=== PATIENT | male | born 1980 | race Caucasian/White ===

== ENCOUNTER 2016-11-06 19:34 | Inpatient (IN) | payer OTHER ==
[2016-11-06] MEDS ORDERED: NS 0.9% 1000 ML* 1,000 ML IV ONE (21:16)
[2016-11-06 21:25] LABS: Hematocrit 48 % (42-52); Hemoglobin 16.8 g/dl (14.0-18.0); Mean Corpuscular HGB Conc 35 g/dl (31-36); Mean Corpuscular Hemoglobin 29 pg (27-31); Mean Corpuscular Volume 83 fL (80-94); Mean Platelet Volume 10 um3 (7.4-10.4); Red Blood Count 5.76 10^6/ul (4.0-5.4); Red Cell Distribution Width 12 % (10.5-15); White Blood Count 12.7 10^3/ul (3.5-10.8)
[2016-11-06 21:37] LABS: Albumin 4.5 g/dL (3.2-5.2); C Reactive Protein 8.67 mg/L (< 5.00); Calcium 9.3 mg/dL (8.6-10.3); EGFR African American 109.4 (>60); Globulin 3.2 g/dL (2-4); Magnesium 1.9 mg/dL (1.9-2.7); Potassium 3.8 mmol/L (3.5-5.0); Total Bilirubin 1.1 mg/dL (0.2-1.0); Total Protein 7.7 g/dL (6.4-8.9)
--- NOTE | 2016-11-06 21:45 | ED ---
I, Oh,Soohjeanetteun, scribed for Celestine Lindsey MD on 11/06/16 at 2119 . Abdominal Pain/Male - HPI Summary HPI Summary: This 36 y/o male presents to ED for "bowel" abd pain since today AM. Positive n/ v x1 "a gallon of bilous vomit" around 1700 PM this afternoon. Nausea is currently resolved right now. Pt had x3 bowel movement today. Pt states that PMHx includes bowel obstructions s/p surgeries with last episode in August 2015. He was referred to ED by Dr. Mojica, his primary care provider, to have imaging studies done and r/o another obstruction. - History of Current Complaint Chief Complaint: EDAbdPain Stated Complaint: VOMITING/ABD PAIN Time Seen by Provider: 11/06/16 21:12 Hx Obtained From: Patient, Medical Records Onset/Duration: Lasting Hours, Still Present Timing: Constant Pain Intensity: 2 Pain Scale Used: 0-10 Numeric Location: Discrete At: RLQ, Discrete At: LLQ Radiates: No Aggravating Factor(s): Nothing Alleviating Factor(s): Nothing Associated Signs And Symptoms: Positive: Nausea, Vomiting. Negative: Fever - Allergies/Home Medications Allergies/Adverse Reactions: Allergies Allergy/AdvReac Type Severity Reaction Status Date / Time Aspartame Allergy Unknown Unknown Verified 11/06/16 21:35 Reaction Details Home Medications: Home Medications metFORMIN* [Glucophage 1000 MG TAB *] 750 mg PO BID 11/06/16 [History Confirmed 11/06/16] PMH/Surg Hx/FS Hx/Imm Hx Endocrine/Hematology History: Reports: Hx Diabetes Denies: Hx Thyroid Disease Cardiovascular History: Denies: Hx Congestive Heart Failure, Hx Hypertension Respiratory History: Denies: Hx Asthma, Hx Chronic Obstructive Pulmonary Disease (COPD) GI History: Reports: Hx Gall Bladder Disease - Gallbladder removed 02/2014, Other GI Disorders - SBO Denies: Hx Gastroesophageal Reflux Disease, Hx Ulcer History: Denies: Hx Renal Disease Sensory History: Reports: Hx Deafness - partial deafness no hearing aides Neurological History: Reports: Hx Nerve Disease - NUMBNESS AT R ARM 5 YEARS AGO - Surgical History Surgery Procedure, Year, and Place: 2013 - bowel adhesion, HAS HERNIA. CHOLECYSTECTOMY - 2013 Infectious Disease History: No Infectious Disease History: Denies: Hx Hepatitis, Hx Human Immunodeficiency Virus (HIV), History Other Infectious Disease, Traveled Outside the [place] in Last 30 Days - Family History Known Family History: Positive: Other - Positive for stomach CA - Social History Alcohol Use: Rare Alcohol Amount: 2/month Hx Substance Use: No Substance Use Type: Reports: None Hx Tobacco Use: Yes Smoking Status (MU): Former Smoker Type: Cigarettes Length of Time of Smoking/Using Tobacco: 10 Review of Systems Negative: Fever Positive: Abdominal Pain, Vomiting, Nausea All Other Systems Reviewed And Are Negative: Yes Physical Exam Triage Information Reviewed: Yes Vital Signs On Initial Exam: Initial Vitals Temp Pulse Resp BP Pulse Ox 97.3 F 88 15 131/82 96 11/06/16 19:38 11/06/16 19:38 11/06/16 19:38 11/06/16 19:38 11/06/16 19:38 Vital Signs Reviewed: Yes Appearance: Positive: Well-Appearing, Pain Distress - mild Skin: Positive: Warm Head/Face: Positive: Normal Head/Face Inspection Eyes: Positive: RICH ENT: Positive: Hearing grossly normal Neck: Positive: Supple Respiratory/Lung Sounds: Positive: Breath Sounds Present Cardiovascular: Positive: RRR Abdomen Description: Positive: Soft, Other: - mild diffuse tenderness Musculoskeletal: Positive: Strength/ROM Intact Neurological: Positive: Alert, Oriented to Person Place, Time Psychiatric: Positive: Affect/Mood Appropriate Diagnostics - Vital Signs Vital Signs Temp Pulse Resp BP Pulse Ox 11/06/16 19:38 97.3 F 88 15 131/82 96 - Laboratory Result Diagrams: 11/06/16 21:14 11/06/16 21:14 Lab Statement: Any lab studies that have been ordered have been reviewed, and results considered in the medical decision making process. - CT Ab/P CT Interpretation: No Acute Changes - Multiple distended loops of small bowel measuring up to 5 cm in maximum diameter with scattered air-fluid levels. These taper to normal caliber distally with a relatively decompressed terminal ileum although a discrete transition point is not identified. Findings may represent ileus although early or partial obstruction cannot be ruled out. Delayed imagings would be helpful to confirm or exclude small bowel obstruction. There is a supraumbilical ventral hernia containing fat and a protruding loop of small bowel without evidence of obstruction at this point. There are multiple loops of small bowel in the mid to lower abd and pelvis demonstrating moderate circumferential thickening compatible with nonspecific enteritis. The appendix and gallbladder are surgically absent. Fatty changes of the liver. The upper abd visceral organs are otherwise unremarkable. No free air, free fluid or loculated collection. CT Interpretation Completed By: Radiologist Repeat Ab/P CT Interpretation: Positive (See Comments) - Level of obstruction appears to be associated with a right paraumbilical ventral hernia CT Interpretation Completed By: Radiologist Re-Evaluation - Re-Evaluation First Eval Re-Evaluation Time: 02:55 Comment: Repeat CT readings were reviewed and shared with pt. Second Eval Re-Evaluation Time: 03:05 Comment: Addressed pt's questions and concerns. Abdominal Pain Fem Course/Dx - Course Course Of Treatment: Consultation: Dr. Man (Surgery) at [address] Man ( Surgery) at [address] Davila (Hospitalist) at 0345 AM Assessment/Plan: This 36 y/o male presents to ED for "bowel" abd pain and n/v since today AM. PMHx is significant for previous bowel obstruction, and pt decided to visit ED today to r/o possible another obstruction. First CT imaging couldn't r/o partial or early obstruction, and delayed imaging was recommended by on-call radiologist. Repeat CT AB/P taken at 0116 indicates obstruction associated with right umbilical ventral hernia. CT imaging studies were shared with Dr. Man (Surgery brickmason apprentice) and Dr. Davila (Hospitalist brickmason apprentice), who is agreeable to admission. - Diagnoses Provider Diagnoses: SBO (small bowel obstruction) - Provider Notifications Discussed Care Of Patient With: Kraig Man Time Discussed With Above Provider: 03:00 Instructed by Provider To: Admit As Inpatient Discharge - Discharge Plan Condition: Fair Disposition: ADMITTED TO [facility] documentation as recorded by the Rodri mistry Soohyun accurately reflects the service I personally performed and the decisions made by me, Celestine Lindsey MD.
[2016-11-06] MEDS ORDERED: Iodixanol* (CONTRAST) 320 MG/ML 100 ML SDV IV ONE (22:13)
[2016-11-07] MEDS ORDERED: Ondansetron INJ* 2 MG/ML VIAL ONE (02:19)
[2016-11-07] MEDS ORDERED: Ondansetron INJ* 2 MG/ML VIAL IV ONE ×2 (02:22→04:15)
[2016-11-07] MEDS ORDERED: Ondansetron INJ* 2 MG/ML VIAL IV PRN ×2 (04:15→04:48)
[2016-11-07] MEDS ORDERED: Morphine INJ* 4 MG/ML 1 ML SYRINGE IV ONE (04:15)
[2016-11-07] MEDS ORDERED: Dextrose 50% Syringe 50 ML* 25 GM/50 ML SYRINGE IV PUSH PRN (04:50)
[2016-11-07] MEDS ORDERED: HYDROmorphone* 1 MG/ML 1 ML SYR IV SLOW PU PRN (04:50)
[2016-11-07] MEDS ORDERED: NS 0.9% 1000 ML* 1,000 ML IV SCH (05:00)
[2016-11-07] MEDS: Heparin VIAL(*) 5000 UNITS/ML VIAL (FIVE THOUSAND) SUBCUT SCH ×3 (06:03→22:09)
[2016-11-07] MEDS: Insulin LISPRO* 1 UNITS UNIT SUBCUT SCH ×4 (06:09→23:56)
--- NOTE | 2016-11-07 07:36 | RAD ---
CLINICAL HISTORY: Abdominal pain, history of small bowel obstruction. COMPARISON: September 06, 2015 TECHNIQUE: Multiple contiguous axial CT scans were obtained of the abdomen and pelvis after the administration of intravenous contrast. Coronal and sagittal multiplanar reformations are submitted for review. Oral contrast was administered. Delayed images were obtained through the abdomen and pelvis. Additionally, delayed images of the abdomen and pelvis were obtained at 1:54 AM. FINDINGS: LUNG BASES: The lung bases are clear. There is minimal bilateral gynecomastia. LIVER: The liver is diffusely low in attenuation compared to the spleen. There are no focal hepatic parenchymal masses. The liver measures up to 20 cm in long axis. BILE DUCTS: There is no intrahepatic or extrahepatic biliary dilatation. GALLBLADDER: The gallbladder is not visualized. Surgical clips are noted in the gallbladder fossa. PANCREAS: The pancreas is normal, without mass or ductal dilatation. SPLEEN: Normal in size and appearance. UPPER GI TRACT: Evaluation of the gastrointestinal tract is limited by incomplete gastric distention. The upper GI tract is unremarkable. SMALL BOWEL AND MESENTERY: There is diffuse distention and mild dilatation of the small bowel, with a transition point to decompressed small bowel in the left midabdomen at the level of the proximal ileum. COLON: The colon is normal in contour, course, caliber. There is no pericolonic inflammatory change. ADRENALS: Normal bilaterally. KIDNEYS: The kidneys are normal in shape, size, contour, and axis. There is no hydronephrosis or nephrolithiasis. BLADDER: There is thickening of the anterior superior margin of the bladder with the questionable urachal remnant. PELVIC ORGANS: The prostate gland is normal. The seminal vesicles are symmetric. AORTA: The aorta is normal. IVC: Unremarkable LYMPH NODES: There is no lymphadenopathy by size criteria. ABDOMINAL WALL: There is diastasis are clear with a broad-based ventral hernia containing a sidewall of small bowel. This is not a transition point. BONES AND SOFT TISSUES: Degenerative changes are noted most pronounced at L5-S1 OTHER: On delayed images, there is been no significant change in the caliber of the small bowel and the point of transition. IMPRESSION: 1. DILATED LOOPS OF SMALL BOWEL WITH A TRANSITION POINT IN THE MID ABDOMEN AT THE LEVEL OF THE ILEUM CONSISTENT WITH SMALL BOWEL OBSTRUCTION. 2. THERE IS A VENTRAL HERNIA CONTAINING SIDEWALL OF SMALL BOWEL. 3. HEPATOMEGALY WITH FATTY INFILTRATION OF THE LIVER. 4. FOCAL BLADDER WALL THICKENING ANTERIORLY AT THE LEVEL OF THE URACHAL REMNANT. CONSIDER CORRELATION WITH DIRECT VISUALIZATION THE NONACUTE SETTING
--- NOTE | 2016-11-07 09:51 | HP ---
CC: Dr. Kiah Mojica* HISTORY AND PHYSICAL: DATE OF ADMISSION: 11/07/16 PRIMARY CARE PHYSICIAN: Dr. Kiah Mojica CHIEF COMPLAINT: Abdominal pain. HISTORY OF PRESENT ILLNESS: The patient is a 36-year-old gentleman who said he had this abdominal pain before. It is started the night before he came in. He is very in tune with his abdominal pain because he has had similar situation already several times. Because he suspected he had another bowel obstruction, he went right into clear liquids. He went to work though the following day despite increasing pain and he actually vomited up a gallon of yellow fluid. He knew it was bile. He then came to the ER for further evaluation. He notes his last bowel movement that was full was at 9:30 a.m. the day before. He has had 3 subsequent bowel movements that were small and liquidy. He vomited also a couple of times here again very bilious material. In the ED, the patient did have a CT scan, which did show likely bowel obstruction. PAST MEDICAL HISTORY: Significant for lysis of adhesions in 2013, despite not having any previous bowel surgeries, cholecystectomy in February 2014, lysis of adhesions again in 2015 with an appendectomy. He also has type 2 diabetes. CURRENT MEDICATIONS: Metformin 750 mg twice daily. ALLERGIES: He has an allergy/adverse reaction to ASPARTAME. FAMILY HISTORY: Mother is alive at 64, type 2 diabetes and iron deficiency anemia. Father is alive at 63 has AAA and hypertension. SOCIAL HISTORY: Quit tobacco in 2005, rare alcohol, no recreational drug use. 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 His , Carole Hensley, is his healthcare proxy. He has 4 children. REVIEW OF SYSTEMS: A 14-point review of systems is completed with the patient. All pertinent positives and negatives are in the history of present illness, otherwise it is negative. PHYSICAL EXAMINATION GENERAL: A pleasant gentleman lying in bed, in no acute distress. VITAL SIGNS: Temperature 97.3 degrees, heart rate 80 beats per minute, respiratory rate 15 breaths per minute, pulse ox 96%, blood pressure 131/82. HEENT: Normocephalic and atraumatic. Pupils are equal, round and reactive to light. Moist mucous membranes. NECK: Supple. No JVD, bruits, palpable thyroid or lymphadenopathy. CHEST: Clear to auscultation and percussion bilaterally. CARDIOVASCULAR: S1, S2 appreciated. ABDOMEN: Positive bowel sounds in all 4 quadrants. It is soft, it is tender, but no rebound, guarding or rigidity. EXTREMITIES: No cyanosis, clubbing, or edema. +2 peripheral pulses bilaterally. NEUROLOGIC: Alert and oriented x3. Moves all extremities. SKIN: No rashes or abnormalities. LABORATORY DATA: White count 12.7, hemoglobin 16.8, hematocrit 48, platelets are 272. Sodium is 134, potassium 3.8, chloride 99, CO2 27, BUN 16, creatinine 1, glucose 134. Abdominal and pelvic CT does show an obstruction associated with a midline hernia. ASSESSMENT AND PLAN: 1. Bowel obstruction. Make patient n.p.o. Normal saline 100 cc an hour. Zofran p.r.n. for nausea, Tylenol p.r.n. for pain. Surgery to see in the a.m. Patient could not have NG tube because they cannot be passed. He has had G tube in the past to decompress the stomach. We will defer this to surgery. 2. Diabetes mellitus. We will hold metformin, fingersticks with sliding scale insulin. 3. FEN. N.p.o. Fluids as noted. 4. DVT prophylaxis. Heparin subcu. 5. The patient is a full code. TIME SPENT: Over 75 minutes was spent on this H and P; more than 40 minutes of which is spent direct [id number] contact with patient evaluation, physical exam, counseling, and coordination of care. [id number]/[facility] #: [id number] MTDD
--- NOTE | 2016-11-07 09:59 | HP ---
CC: Dr. Kiah Mojica; [facility]; [facility] at [facility] * HISTORY AND PHYSICAL: DATE OF ADMISSION: 11/07/16. HISTORY OF PRESENT ILLNESS: I was contacted by the emergency room in the overnight regarding Mr. Hensley a 36-year-old gentleman known to me with history of small bowel obstructions, who presented to the emergency room with a three-day history of nausea, vomiting and abdominal pain. The patient's workup in the emergency room included a CT scan and labs. The patient showed evidence of small bowel obstruction with dilated small bowel in transition zone. He was admitted to the short stay surgical unit, started on IV fluids, maintained on n.p.o. status. No NG tube was placed; the patient has had difficulty with NG tube placement in the past. The patient describes onset of symptoms two days ago. He felt vague abdominal pain consistent with previous small bowel obstructions. This was accompanied with nausea, minimal flatus. The patient stayed away from solid foods and only drank liquids. He did have a bowel movement that was within normal limits; but the following day, on 11/06/16, the patient had significant vomiting of approximately what he describes as a gallon of bilious emesis. At that point, the patient did have decreased flatus and had two additional loose bowel movements. Abdominal complaints was still described as a vague mid abdominal pain that was not severe. He then presented to the emergency room for concerns of a repeat small bowel obstruction. The patient was known to me from a year ago where he underwent diagnostic laparoscopy conversion to laparotomy, extensive lysis of adhesions, and placement of a gastrostomy tube because of inability to pass an NG tube secondary to repeated broken noses. The patient tolerated that procedure well, was discharged on postop day 6. He did follow up with physical therapist for improvement of potential scar tissue and he also followed with a specialist director of digital platforms in the [facility] for the purpose of getting worked up. There was a plan for endoscopy and colonoscopy; however, this had not happened. PAST MEDICAL HISTORY: Type 2 diabetes and small bowel obstructions. PAST SURGICAL HISTORY: Exploratory laparotomy in 2013, laparoscopic cholecystectomy in 2013, exploratory laparotomy in 2016 with appendectomy and gastrostomy. The gastrostomy has since been removed. HOME MEDICATIONS: Include metformin. ALLERGIES: He is allergic to ASPARTAME. SOCIAL HISTORY: He does not smoke. 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 FAMILY HISTORY: Significant for father who has had similar obstructive patterns throughout his life, but he has never undergone surgery. His maternal grandfather had ulcerative colitis. REVIEW OF SYSTEMS: No shortness of breath. No chest pain. No cardiovascular disease. Good exercise tolerance. Abdominal complaints as described. No dysuria. No hematuria. Bowel movements as described with loose bowel movements yesterday. Minimal flatus now. He did have an episode of flatus while I examined him today. He denies any bleeding or clotting disorders. He has never had a colonoscopy. Endocrine disorder as described above. He denies any fevers or chills. No headaches or visual disturbances. PHYSICAL EXAMINATION GENERAL: He is alert and oriented x3, in no apparent distress. VITAL SIGNS: Today, he is afebrile, blood pressure 120/69, pulse 80, respirations 17, with O2 sat of 96%. HEENT: Head is normocephalic, atraumatic. Sclerae anicteric. Mucous membranes are moist. NECK: No lymphadenopathy. LUNGS: Clear to auscultation bilaterally. ABDOMEN: Soft, nondistended, nontender. Healed midline incision with incisional hernia at the superior aspect; this is reducible. Hypoactive bowel sounds. No groin hernias. RECTAL EXAM: Not performed. No CVA tenderness. EXTREMITIES: Within normal limits. DIAGNOSTIC STUDIES/LAB DATA: Show a white count of 12.7 with a CRP of 8.5. CT scan images as well as report were reviewed. It showed dilated loops of small bowel with a transition point in the mid abdomen at the level of the ileum. Ventral hernia that did not represent the location of the transition point. Small bowel showed mild dilatation. No lymphadenopathy. No free fluid and no free air. IMPRESSION AND PLAN: Recurrent small bowel obstruction in a patient with complicated history of small bowel obstructions and extensive lysis of adhesions. Clinically stable at this time. Plan will be for watchful waiting. N.p.o. Status - we will not place an NG tube because we were not able to in the past and we will not try. That being said, we could consider interventional radiologic placement of a gastrostomy through the previous site. I would like to start the patient on antibiotics, feeling that there is a component of enteritis and this may help. I discussed this plan with the patient, and we will potentially go to the operating room on this admission for an exploratory laparotomy, lysis of adhesions, and he is aware of this. We would place a gastrostomy tube at the time. Again, we will manage his glucose with insulin. He will remain on IV fluids. We will repeat the x-ray and labs in the morning. [id number]/[facility] #: [id number] QI
--- NOTE | 2016-11-07 10:06 | RAD ---
HISTORY: Rule out obstruction COMPARISONS: CT dated November 07.17 VIEWS: Frontal views of the abdomen. FINDINGS: BOWEL: Again noted in loops of small bowel CALCULI: There are no abnormal calculi. BONES AND SOFT TISSUES: There are no osseous abnormalities. OTHER FINDINGS: The lung bases are clear. There is no subphrenic gas. IMPRESSION: PERSISTENT DILATED LOOPS OF SMALL BOWEL CONSISTENT WITH SMALL BOWEL OBSTRUCTION.
[2016-11-07] MEDS: Ciprofloxacin 400MG IVPREMIX(* 400 MG/200 ML BAG IVPB SCH ×2 (10:16→22:10)
[2016-11-07] MEDS ORDERED: NS 0.9% 1000 ML* 1,000 ML IV ONE ×2 (10:42→17:26)
[2016-11-07] MEDS: metroNIDAZOLE IV 500 MG/100ML* 500 MG/100 ML BAG IVPB SCH ×2 (11:44→23:23)
--- NOTE | 2016-11-07 12:27 | PN ---
Progress Note - Progress Note Date of Service: 11/07/16 Note: I was asked to see the patient by nursing staff to explain findings of abdominal xrays from this AM. Patient reports feeling better, less distended, passing lots of flatus. Abdominal films revealed persistent SBO On exam: Abdomen soft, NT, ND. Bowel sounds active in all quadrant. Moderate size VIH noted at upper midline incision, no evidence of incarcerated bowel, non-tender on exam. Patient was reassured, he is comfortable at this point. He would rather not start on any sips of clear liquids, since he's afraid of vomiting again. Await bowel functions.
[2016-11-07] MEDS: NS 0.9% 1000 ML* 1,000 ML IV SCH ×2 (13:14→18:55)
[2016-11-08] MEDS: NS 0.9% 1000 ML* 1,000 ML IV SCH (03:38)
[2016-11-08 04:53] LABS: Urine Bacteria Absent (Absent); Urine Bilirubin Negative (Negative); Urine Glucose Negative (Negative); Urine Nitrite Negative (Negative)
[2016-11-08] MEDS: Heparin VIAL(*) 5000 UNITS/ML VIAL (FIVE THOUSAND) SUBCUT SCH ×3 (06:09→22:06)
[2016-11-08] MEDS: Insulin LISPRO* 1 UNITS UNIT SUBCUT SCH (06:17)
[2016-11-08 07:04] LABS: Hematocrit 41 % (42-52); Hemoglobin 14.4 g/dl (14.0-18.0); Mean Corpuscular HGB Conc 35 g/dl (31-36); Mean Corpuscular Hemoglobin 29 pg (27-31); Mean Corpuscular Volume 84 fL (80-94); Mean Platelet Volume 10 um3 (7.4-10.4); Red Cell Distribution Width 13 % (10.5-15); White Blood Count 5.4 10^3/ul (3.5-10.8)
[2016-11-08 07:17] LABS: BUN/Creatinine Ratio 12.9 (8-20); Calcium 8.3 mg/dL (8.6-10.3); EGFR African American 118.9 (>60); EGFR Non-African American 92.5 (>60); Potassium 3.4 mmol/L (3.5-5.0)
--- NOTE | 2016-11-08 09:25 | PN ---
Progress Note - Progress Note Date of Service: 11/08/16 SOAP: Subjective: small bowel obstruction feels hungry,passing flatus,crampy pain,reports dark urine [] Objective:abd:few bs,nondistended,minimal tenderness with deep palpation,no guarding Vital Signs Temp 98.1 F 11/08/16 07:25 Pulse 77 11/08/16 07:25 Resp 18 11/08/16 08:00 BP 116/74 11/08/16 07:25 Pulse Ox 97 11/08/16 07:25 Intake & Output 11/07/16 11/08/16 11/08/16 18:59 06:59 18:59 Intake Total 2988 1307 661 Output Total 400 1200 Balance 2588 107 661 Intake: IV Fluids 2883 1307 661 ABX - CIPROFLOXACIN 205 ABX - FLAGYL 105 NS (0.9%) 2883 997 661 IVPB 105 ABX - FLAGYL 105 Oral 0 0 Output: Urine 400 1200 [] Assessment:gradual clinical improvement of SBO symptoms [] Plan:clear liquids;review above with ;?repeat AXR []
[2016-11-08] MEDS: Ciprofloxacin 400MG IVPREMIX(* 400 MG/200 ML BAG IVPB SCH ×2 (09:32→22:07)
[2016-11-08] MEDS: metroNIDAZOLE IV 500 MG/100ML* 500 MG/100 ML BAG IVPB SCH ×2 (11:12→23:36)
--- NOTE | 2016-11-08 16:33 | PN ---
Subjective Date of Service: 11/08/16 Interval History: This is a 36 yo gentleman with DM admitted with SBO. He is tolerating clear liquids well. He had a BM earlier today. No further abd pain, n/v. Objective Active Medications: Dextrose (D50w Syringe 50 Ml*) 12.5 gm IV PUSH .FOR FS < 60 - SS PRN PRN Reason: FS < 60 Heparin Sodium (Porcine) (Heparin Vial(*)) 5,000 units SUBCUT Q8HR [facility] Last Admin: 11/08/16 14:33 Dose: 5,000 units Hydromorphone HCl (Dilaudid Iv*) 1 mg IV SLOW PU Q4H PRN PRN Reason: PAIN Ciprofloxacin/Dextrose (Cipro 400 Mg Ivpremix(*)) 400 mg in 200 mls @ 200 mls/ hr IVPB Q12H [facility] Last Admin: 11/08/16 09:32 Dose: 200 mls/hr Metronidazole/Sodium Chloride (Flagyl 500 Mg Ivpb*) 500 mg in 100 mls @ 100 mls /hr IVPB Q12H [facility] Last Admin: 11/08/16 11:12 Dose: 100 mls/hr Lactated Ringer's (Lactated Ringers 1000 Ml Bag*) 1,000 mls @ 150 mls/hr IV PER RATE [facility] Last Admin: 11/08/16 08:03 Dose: 150 mls/hr Ondansetron HCl (Zofran Inj*) 4 mg IV Q4H PRN PRN Reason: NAUSEA Vital Signs: Temp Pulse Resp BP Pulse Ox 97.9 F 69 18 118/76 98 11/08/16 15:16 11/08/16 15:16 11/08/16 15:16 11/08/16 15:16 11/08/16 15:16 Oxygen Devices in Use Now: None Appearance: Well appearing young gentleman in NAD Respiratory: Symmetrical Chest Expansion and Respiratory Effort, Clear to Auscultation Cardiovascular: NL Sounds; No Murmurs; No JVD, RRR Abdominal: NL Sounds; No Tenderness; No Distention, - - bowel sounds present Extremities: No Edema Skin: No Rash or Ulcers Neurological: Alert and Oriented x 3 Result Diagrams: 11/08/16 06:55 11/08/16 06:55 Assess/Plan/Problems-Billing Assessment: This is a pleasant 36 yo gentleman with NIDDM who presented with c/o abd pain and vomiting, admitted with SBO. - Patient Problems (1) SBO (small bowel obstruction) Comment: Resolving h/o multiple prior obstructions Management per surgery (2) Diabetes Comment: Well controlled Resume oral meds at dc, cover hyperglycemia with SS Humalog prn (3) DVT prophylaxis Comment: Heparin SQ (4) Full code status Status and Disposition: Inpatient. Dispo per surgery. Primary attending has been transferred to Dr Man and hospitalist group will sign off at this time.
[2016-11-09] MEDS: Heparin VIAL(*) 5000 UNITS/ML VIAL (FIVE THOUSAND) SUBCUT SCH (05:46)
[2016-11-09] MEDS: Ciprofloxacin 400MG IVPREMIX(* 400 MG/200 ML BAG IVPB SCH (10:04)
[2016-11-09] MEDS: metroNIDAZOLE IV 500 MG/100ML* 500 MG/100 ML BAG IVPB SCH (11:28)
[2016-11-09 12:40] VITALS: BP 131/81
--- NOTE | 2016-11-10 00:40 | DS ---
CC: Kiah Mojica MD * DISCHARGE SUMMARY: DATE OF ADMISSION: 11/07/16 DATE OF DISCHARGE: 11/09/16 ATTENDING SURGEON: Kraig Man MD * (DICTATED BY ROBERT EDMONDS) HOSPITAL COURSE: Please refer to admission history and physical for admission details. Patient presented with evidence of small bowel obstruction possibly related to his ventral hernia. He was treated conservatively with bowel rest and IV hydration with gradual improvement over the succeeding two days. He was able to begin clear liquids yesterday and has tolerated full liquids well today. He has had both flatus and bowel movements and has much less pain to the point where he is not requiring any analgesics. Patient was seen and examined this morning by Dr. Man. At the time of discharge, temperature 98, blood pressure 131/81, pulse 71, respirations 14, room air saturation 97%. ASSESSMENT: Small bowel obstruction, resolved. PLAN: Patient will be discharged today with gradual progression of diet from full liquid for 2 days followed by puree diet for 2 days, then diet as tolerated. He will also complete another 4 days of Cipro and Flagyl for a possible component of enteritis. He does have a followup scheduled with Dr. Man in the office next , 11/16/16. He knows to call our office if there are any recurrent symptoms of abdominal pain, vomiting, fever or chills. ROBERT EDMONDS [id number]/[facility] #: [id number] [facility] HOSPITALMaria E
== END 2016-11-09 15:20 | disposition home or self-care (01) | DRG 395 ==
LOC: ED 19:34 → SSU 11-07 04:50
PROVIDERS: ADMIT Internal Medicine; ATTEND Surgery
DX: K43.6 Other and unspecified ventral hernia with obstruction, without gangrene (principal); E11.9 Type 2 diabetes mellitus without complications; H91.8X9 Other specified hearing loss, unspecified ear; Z90.49 Acquired absence of other specified parts of digestive tract; Z88.8 Allergy status to other drugs, medicaments and biological substances; Z83.79 Family history of other diseases of the digestive system; Z82.49 Family history of ischemic heart disease and other diseases of the circulatory system; Z83.3 Family history of diabetes mellitus; Z83.2 Family history of diseases of the blood and blood-forming organs and certain disorders involving the immune mechanism; Z87.891 Personal history of nicotine dependence; Z80.0 Family history of malignant neoplasm of digestive organs
CPT/HCPCS: 36415; 74020; 74176; 74177; 80048; 80053; 81003; 81015; 83605; 83690; 83735; 85025; 86140; 87086; J0744; J1644; J2270; J2405; Q9967

== ENCOUNTER → 2017-03-28 11:34 | Emergency (ER) | payer OTHER | END | disposition left against medical advice (07) | LOC: ED 11:34 | DX: K59.00 Constipation, unspecified (principal); Z53.21 Procedure and treatment not carried out due to patient leaving prior to being seen by health care provider ==

== ENCOUNTER 2018-02-06 19:35 | Inpatient (IN) | payer OTHER ==
--- NOTE | 2018-02-06 20:56 | ED ---
Abdominal Pain/Male - HPI Summary HPI Summary: Patient is a 37 y/o M w/ Hx of Crohn's disease and IBS presenting to ED with abdominal pain and vomiting. Abdominal pain onset yesterday afternoon, worsened today in the afternoon. He reports x3 episodes of vomiting. Patient denies diarrhea, reports last bowel movement was 1120 today. He is concerned this is a flare-up of his Crohn's. Patient is on pentasa and hyoscyamine. He is not on steroids. Patient's automatic lathe operator is Lisette Rosales from [employer]. Last seen by this doctor two months ago, typically sees her every six months. Patient reports that his automatic lathe operator told him to come to ED for CT abd/ pel and steroids. PSHx for bowel obstruction, cholecystectomy. He also reports Hx of colonoscopy and endoscopy. On triage, pain is rated 9/10, eating and sitting up is noted to aggravate Sx. Home medications and allergies are reviewed. - History of Current Complaint Chief Complaint: EDAbdPain Stated Complaint: ABDOMINAL PAIN Time Seen by Provider: 02/06/18 20:46 Hx Obtained From: Patient Onset/Duration: Lasting Days - yesterday afternoon, Still Present, Worse Since - this afternoon Timing: Constant, Lasting Days Severity Initially: Moderate Severity Currently: Severe - 9/10 Pain Intensity: 9 Pain Scale Used: 0-10 Numeric - 9/10 Aggravating Factor(s): Food, Movement - sitting up Alleviating Factor(s): Nothing Associated Signs And Symptoms: Positive: Vomiting, Other - abdominal pain. Negative: Constipation, Diarrhea - Allergies/Home Medications Allergies/Adverse Reactions: Allergies Allergy/AdvReac Type Severity Reaction Status Date / Time aspartame Allergy Unknown Unknown Verified 02/06/18 22:27 Reaction Details Home Medications: Home Medications Hyoscyamine Sulfate 0.125 mg PO Q6HR 02/06/18 [History Confirmed 02/06/18] Mesalamine CAP(NF) [Pentasa(NF)] 1,000 mg PO Q6HR 02/06/18 [History Confirmed ] PMH/Surg Hx/FS Hx/Imm Hx Endocrine/Hematology History: Reports: Hx Diabetes Denies: Hx Anticoagulant Therapy, Hx Blood Disorders, Hx Blood Transfusions, Hx Bone Marrow Disease, Hx Sickle Cell Disease, Hx Thyroid Disease, Hx Anemia, Hx Unexplained Bleeding Cardiovascular History: Denies: Hx Congestive Heart Failure, Hx Hypertension Respiratory History: Denies: Hx Asthma, Hx Chronic Obstructive Pulmonary Disease (COPD) GI History: Reports: Hx Gall Bladder Disease - gallblaadder removed, Other GI Disorders - sboX 2 Denies: Hx Gastroesophageal Reflux Disease, Hx Ulcer History: Denies: Hx Acute Renal Failure, Hx Benign Prostatic Hyperplasia, Hx Chronic Renal Failure, Hx Dialysis, Hx Renal Disease Musculoskeletal History: Denies: Hx Arthritis, Hx Back Problems, Hx Bursitis, Hx Congenital Bone Abnormalities, Hx Fibromyalgia, Hx Gout, Hx Orthopedic Injury Sensory History: Reports: Hx Contacts or Glasses - reading glassess, Hx Hearing Problem - 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 Denies: Hx Eye Injury, Hx Eye Prosthesis, Hx Glaucoma, Hx Legally Blind, Hx Macular Degeneration, Hx Vision Problem, Hx Deafness, Hx Hearing Aid, Other Sensory Impairments Opthamlomology History: Reports: Hx Contacts or Glasses - reading glassess Denies: Hx Eye Injury, Hx Eye Prosthesis, Hx Glaucoma, Hx Legally Blind, Hx Macular Degeneration, Hx Vision Problem, Other Sensory Impairments Neurological History: Reports: Hx Nerve Disease - NUMBNESS AT R ARM 5 YEARS AGO Denies: Hx Dementia, Hx Developmental Delay, Hx Headaches, Hx Migraine, Hx Seizures, Hx Spinal Cord Injury, Hx Transient Ischemic Attacks (TIA), Other Neuro Impairments/Disorders Psychiatric History: Denies: Hx Anxiety, Hx Attention Deficit Hyperactivity Disorder, Hx Depression, Hx Community Mental Health Tx, Hx Bipolar Disorder - Surgical History Surgery Procedure, Year, and Place: 2013 - bowel adhesion, HAS HERNIA. CHOLECYSTECTOMY - 2013 Hx Anesthesia Reactions: No Infectious Disease History: No Infectious Disease History: Denies: Hx Hepatitis, Hx Human Immunodeficiency Virus (HIV), History Other Infectious Disease, Traveled Outside the [place] in Last 30 Days - Family History Known Family History: Positive: Other - Positive for stomach CA - Social History Alcohol Use: Rare Alcohol Amount: 2/month Hx Substance Use: No Substance Use Type: Reports: None Hx Tobacco Use: Yes Smoking Status (MU): Former Smoker Type: Cigarettes Length of Time of Smoking/Using Tobacco: 10 Review of Systems Negative: Fever - on vitals, temp is 97.8 F Positive: Abdominal Pain, Vomiting, Other - NEGATIVE - CONSTIPATION . Negative : Diarrhea All Other Systems Reviewed And Are Negative: Yes Physical Exam - Summary Physical Exam Summary: VITAL SIGNS: Reviewed. GENERAL: Patient is a well-developed and nourished male who is lying comfortable in the stretcher. Patient is not in any acute respiratory distress. HEAD AND FACE: No signs of trauma. No ecchymosis, hematomas or skull depressions. No sinus tenderness. EYES: PERRLA, EOMI x 2, No injected conjunctiva, no nystagmus. EARS: Hearing grossly intact. Ear canals and tympanic membranes are within normal limits. MOUTH: Oropharynx within normal limits. NECK: Supple, trachea is midline, no adenopathy, no JVD, no carotid bruit, no c- spine tenderness, neck with full ROM. CHEST: Symmetric, no tenderness at palpation LUNGS: Clear to auscultation bilaterally. No wheezing or crackles. CVS: Regular rate and rhythm, S1 and S2 present, no murmurs or gallops appreciated. ABDOMEN: Soft, diffuse abdominal tenderness. No signs of distention. No rebound no guarding, and no masses palpated. Bowel sounds are mildly hyperactive. EXTREMITIES: FROM in all major joints, no edema, no cyanosis or clubbing. NEURO: Alert and oriented x 3. No acute neurological deficits. Speech is normal and follows commands. SKIN: Dry and warm Triage Information Reviewed: Yes Vital Signs On Initial Exam: Initial Vitals Temp Pulse Resp BP Pulse Ox 97.8 F 115 22 139/94 96 02/06/18 19:39 02/06/18 19:39 02/06/18 19:39 02/06/18 19:39 02/06/18 19:39 Vital Signs Reviewed: Yes Diagnostics - Vital Signs Vital Signs Temp Pulse Resp BP Pulse Ox 02/06/18 19:39 97.8 F 115 22 139/94 96 - Laboratory Result Diagrams: 02/06/18 21:18 02/06/18 21:18 Lab Statement: Any lab studies that have been ordered have been reviewed, and results considered in the medical decision making process. - CT CT ABD/PEL CT Interpretation Completed By: Radiologist Summary of CT Findings: CT ABD/PEL IMPRESSION: 1. Evidence of small bowel obstruction which is less prominent since 11/07/2016. but has a similar configuration. A definite point of transition is not. identified and appears to be somewhat tapering. 2. Status post cholecystectomy. 3. Broad-based epigastric ventral wall hernia containing some bowel segments. with no strangulation or point of obstruction. This report was reviewed by ED physician. Re-Evaluation - Re-Evaluation First Eval Re-Evaluation Time: 22:59 Comment: Patient states he would be unwilling to receive angiotube but is agreeable with surgical consult. Abdominal Pain Fem Course/Dx - Course Course Of Treatment: Patient is a 37 y/o M w/ Hx of Crohn's disease and IBS presenting to ED with abdominal pain and vomiting. Abdominal pain onset yesterday afternoon, worsened today in the afternoon. He reports x3 episodes of vomiting. Patient denies diarrhea, reports last bowel movement was 1120 today. He is concerned this is a flare-up of his Crohn's. Patient is on pentasa and hyoscyamine. He is not on steroids. Patient's automatic lathe operator is Lisette Rosales from [employer]. Last seen by this doctor two months ago, typically sees her every six months. Patient reports that his automatic lathe operator told him to come to ED for CT abd/pel and steroids. PSHx for bowel obstruction, cholecystectomy. On physical exam, patient is noted to have diffuse abdominal tenderness and mild hyperactive bowel sounds. During ED course, patient received reglan 10 mg IV, morphine 4 mg IV, fluids. Labs showed WBC 19.7, RBC 5.76, neut% 87.3, lymp% 5.8, absolute neuts 17.2, absolute monos 1.2, APTT 25, chloride 100, anion gap 13, glucose 190, lactic acid 2.5. Amylase was 29, lipase 25, CRP 3.35, magnesium 1.9. CT ABD/PEL IMPRESSION: 1. Evidence of small bowel obstruction which is less prominent since 11/07/2016. but has a similar configuration. A definite point of transition is not. identified and appears to be somewhat tapering. 2. Status post cholecystectomy. 3. Broad- based epigastric ventral wall hernia containing some bowel segments. with no strangulation or point of obstruction. Patient's case was discussed with Dr. Man at 2300. Dr. Man states that patient should be admitted to hospitalist and he will consult tomorrow. 2303 - Patient's case was discussed with Dr. Crouch , Dr. Crouch accepts patient for admission. Dx of small bowel obstruction - Diagnoses Provider Diagnoses: SBO (small bowel obstruction) - Provider Notifications Discussed Care Of Patient With: Kraig Man Time Discussed With Above Provider: 23:00 Instructed by Provider To: Other - Patient's case was discussed with Dr. Man at 2300. Dr. Man states that patient should be admitted to hospitalist and he will consult tomorrow. 230 - Patient's case was discussed with Dr. Crouch, Dr. Crouch accepts patient for admission. Discharge - Sign-Out/Discharge Documenting (check all that apply): Patient Departure - admit - Discharge Plan Condition: Good Disposition: ADMITTED TO [facility] Referrals: Kiah Mojica MD [Primary Care Provider] - - Attestation Statements Document Initiated by Scribe: Yes Documenting Scribe: Sam Aguilar Provider For Whom Scribe is Documenting (Include Credential): Carmella Erickson MD Scribe Attestation: ISam , scribed for Carmella Erickson MD on 02/07/18 at 0015.
[2018-02-06] MEDS ORDERED: Metoclopramide IV* 5 MG/ML 2 ML VIAL IV SLOW PU ONE (20:58)
[2018-02-06] MEDS ORDERED: NS 0.9% 1000 ML* 1,000 ML IV ONE (20:58)
[2018-02-06] MEDS ORDERED: Morphine INJ* 2 MG/ML 1 ML SYRINGE (TWO MG - NEW SYRINGE VERSION) IV PRN (20:58)
[2018-02-06] MEDS ORDERED: Morphine VIAL* 4 MG/ML VIAL (1 ml vial) IV ONE (21:04)
[2018-02-06 21:36] LABS: ABS Basophils 0 10^3/ul (0-0.2); ABS Eosinophils 0.1 10^3/ul (0-0.6); ABS Lymphocytes 1.2 10^3/ul (1.0-4.8); ABS Monocytes 1.2 10^3/ul (0-0.8); ABS Neutrophils 17.2 10^3/ul (1.5-7.7); ABS Nucleated RBC 0.1 10^3/ul; Eosinophil % 0.5 % (0-6); Hematocrit 49 % (42-52); Lymphocyte % 5.8 % (25-47); Mean Corpuscular HGB Conc 35 g/dl (31-36); Mean Corpuscular Hemoglobin 30 pg (27-31); Mean Corpuscular Volume 85 fL (80-94); Mean Platelet Volume 9.8 fL (7.4-10.4); Nucleated Red Blood Cells % 0.6; Platelet Count 203 10^3/ul (150-450); Red Blood Count 5.76 10^6/ul (4.00-5.40); Red Cell Distribution Width 13 % (10.5-15); White Blood Count 19.7 10^3/ul (3.5-10.8)
[2018-02-06 21:40] LABS: INR 0.9 (0.77-1.02)
[2018-02-06] MEDS ORDERED: Iodixanol 320 (CONTRAST) 100 ML SDV IV ONE (21:41)
[2018-02-06 21:46] LABS: EGFR Non-African American 87.6 (>60)
[2018-02-06] MEDS ORDERED: Morphine VIAL* 4 MG/ML VIAL (1 ml vial) IV PRN ×2 (22:30→23:33)
[2018-02-06] MEDS ORDERED: Piperacillin/Tazobac ADVAN(*) 3.375 GM in NS 0.9% 100 ML* 100 ML IVPB ONE (22:56)
[2018-02-06] MEDS ORDERED: Ondansetron INJ* 2 MG/ML VIAL IV PRN (23:33)
[2018-02-06] MEDS ORDERED: NS 0.9% 1000 ML* 1,000 ML IV SCH (23:45)
[2018-02-07] MEDS: NS 0.9% 1000 ML* 1,000 ML IV SCH ×3 (00:16→17:12)
[2018-02-07] MEDS ORDERED: Ciprofloxacin 400MG IVPREMIX(* 400 MG/200 ML BAG IVPB SCH ×2 (01:00→02:00)
[2018-02-07] MEDS: Insulin REGULAR(*) 1 UNITS UNIT SUBCUT SCH ×5 (01:09→23:57)
[2018-02-07] MEDS ORDERED: metroNIDAZOLE IV 500 MG/100ML* 500 MG/100 ML BAG IVPB SCH ×2 (02:00)
--- NOTE | 2018-02-07 02:31 | HP ---
CC: Kiah Mojica MD; Lisette Rosales MD at [facility], phone #[phone] * HISTORY AND PHYSICAL: DATE OF ADMISSION: 02/06/18 TIME OF EVALUATION: 2300. PRIMARY CARE PHYSICIAN: Kiah Mojica MD PANEL SAW OPERATOR: Lisette Rosales MD at [facility], phone #[phone]. CHIEF COMPLAINT: Abdominal pain and nausea/vomiting. HISTORY OF PRESENT ILLNESS: This is a 37-year-old male with a past medical history of Crohn's and recurrent small bowel obstruction, who presents to the emergency room with worsening abdominal pain and nausea/vomiting. The patient states he is getting frequent episodes of small bowel obstruction. Once he started the Pentasa, it is improved. He has only had 2 episodes of abdominal discomfort over the past year where he normally just switches to clears and it improves on its own. Yesterday, he was developing some abdominal pain. Normally he would switch to clears but he went about his usual activity and diet , took his Pentasa, felt better. He had a bowel movement this morning, had a small breakfast and lunch. Shortly after lunch, he developed abdominal pain. They called their GI doctor, Dr. Rosales, and she recommended going to urgent care for further evaluation. He had labs done at that time, and after urgent care visit, began developing nausea, vomiting, worsening pain and the decision was come to emergency room for further evaluation to have a CAT scan. He has had chills. He did have flatus earlier this evening. No chest pain, no shortness of breath. No changes in his weight. Otherwise, remaining review of systems is negative. In the emergency room, the patient had labs, imaging, was given a liter of fluid and morphine 4 mg, Reglan 10 mg. CAT scan findings consistent with a small bowel obstruction. Dr. Man was contacted, he recommended hospitalist admission. Otherwise, review of systems is negative. PAST MEDICAL HISTORY: 1. History of recurrent small bowel obstruction. 2. Crohn disease, followed by Dr. Rosales in [facility]. 3. History of ventral hernia. 4. Diabetes. PAST SURGICAL HISTORY: 1. Lysis of adhesions April 2013 and August 2015. 2. Laparoscopic cholecystectomy in February 2014. MEDICATIONS: 1. Pentasa 1000 mg p.o. q.6 hours. 2. Metformin 750 mg p.o. b.i.d. 3. Hyoscyamine 0.125 mg p.o. q.6 hours as needed. ALLERGIES: ASPARTAME. FAMILY HISTORY: Mother is alive with diabetes. Father is alive with hypertension. Maternal grandmother had ulcerative colitis. SOCIAL HISTORY: The patient lives at home with his and 4 children. 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 Quit smoking in 2005, at that time he smoked a pack per day for 6 years. Rare alcohol use. His healthcare proxy is his . Code status is full code. REVIEW OF SYSTEMS: A 14-point of review of systems as mentioned in the HPI; otherwise negative. PHYSICAL EXAMINATION GENERAL: No acute distress, resting comfortably with his at the bedside. VITAL SIGNS: Temperature 97.8, pulse rate 85, respiratory rate 18, oxygen saturation 96% on room air, blood pressure 127/86. HEENT: Head normocephalic. Pupils are equal and reactive. Oropharynx: Mucous membranes moist. NECK: Supple. No lymphadenopathy. RESPIRATORY: Diminished breath sounds. No wheezes, rhonchi, or rales. CARDIAC: Regular rate and rhythm. No murmurs, rubs, or gallops. ABDOMEN: Very hyperactive bowel sounds are present. There is mild distention. Tenderness mostly in the epigastric region. No rebound, no guarding. EXTREMITIES: No clubbing, cyanosis, or edema. +2 DPs. NEUROLOGIC: Alert and oriented x3. No gross focal neurologic deficits. DIAGNOSTIC STUDIES/LABORATORY DATA: White count 19.7, hemoglobin 17, hematocrit 49, platelets 203. INR was 0.9. Sodium 137, potassium 4, chloride 100, bicarb 24, BUN 19, creatinine 0.97, glucose 190, lactic acid 2.5, magnesium 1.9. Lipase 25. Radiographic Data: Evidence of small bowel obstruction, which is less prominent since 11/07/16, but has similar configuration, definite point of transition is not identified and appears to be somewhat tapering, status post cholecystectomy, broad- based epigastric ventral hernia containing small bowel segments, but no strangulation or point of obstruction. ASSESSMENT: This is a 37-year-old male with past medical history of Crohn's and recurrent small bowel obstruction, who presents to the emergency room with abdominal pain, nausea, vomiting, found to have small bowel obstruction. Small bowel obstruction. Assessment: The patient does not have an acute abdomen at this time. He did pass flatus earlier in the evening. Dr. Man has been contacted and will evaluate the patient. Plan: We will continue on IV fluids. We will start him on antibiotics for a suspected underlying Crohn's flare with Cipro and Flagyl. The family is interested in starting on steroids. We will hold off on this, but recommend contacting Dr. Rosales for further evaluation and management. We will repeat a lactate in 4 hours to make sure there is no concern for ischemic bowel. Pain control as well. The family and the patient are refusing the NG tube as he does not tolerate this. He is not actively vomiting or nauseated at this time. CHRONIC MEDICAL PROBLEMS: 1. Diabetes. We will hold his p.o. agents and place him on regular insulin. Glucose checks q.6 hours. 2. Crohn's. Hold his Pentasa for now as he is n.p.o. 3. FEN: IV fluids, n.p.o. 4. DVT prophylaxis. The patient's score is 1, of low risk. We will place him on SCDs. PATIENT TIME: Greater than 50 minutes were spent doing the history and physical , more than half the time was spent in direct patient contact. [id number]/[facility] #: [id number] QI
[2018-02-07 05:59] LABS: ABS Basophils 0 10^3/ul (0-0.2); ABS Eosinophils 0.2 10^3/ul (0-0.6); ABS Lymphocytes 2.4 10^3/ul (1.0-4.8); ABS Monocytes 0.9 10^3/ul (0-0.8); ABS Neutrophils 6.5 10^3/ul (1.5-7.7); ABS Nucleated RBC 0 10^3/ul; Eosinophil % 1.7 % (0-6); Hematocrit 45 % (42-52); Hemoglobin 15.9 g/dl (14.0-18.0); Mean Corpuscular HGB Conc 36 g/dl (31-36); Mean Corpuscular Hemoglobin 30 pg (27-31); Mean Corpuscular Volume 84 fL (80-94); Mean Platelet Volume 9.7 fL (7.4-10.4); Nucleated Red Blood Cells % 0.1; Platelet Count 173 10^3/ul (150-450); Red Cell Distribution Width 13 % (10.5-15); White Blood Count 9.9 10^3/ul (3.5-10.8)
[2018-02-07 06:08] LABS: EGFR Non-African American 81.7 (>60)
--- NOTE | 2018-02-07 09:52 | CONS ---
CC: [facility]; Kiah Mojica MD; Lisette Rosales, GI doc in [facility] * SURGICAL CONSULTATION REPORT: DATE OF CONSULT: 02/07/18 HISTORY OF PRESENT ILLNESS: I was contacted by the emergency room in the overnight period regarding Mr. Hensley, 37-year-old gentleman known to me after undergoing an exploratory laparotomy, extensive lysis of adhesions over 2 years ago for a small bowel obstruction. After that adhesiolysis, the patient followed up with different house painter helper and ultimately was diagnosed with small bowel Crohn's disease. He has been successfully treated on Pentasa and was in his regular good health until yesterday when he started developing worsening abdominal pain along with nausea and vomiting. Vomiting was bilious. He was passing flatus during this time. It seemed similar to previous episodes of small bowel obstruction. In the past, the patient has successfully treated himself for similar symptoms at home with bowel rest. For the most part, he has not missed work. This episode, however, the pain was significant. He presented to the hospital. He was given narcotics, IV fluids, and admitted for observation. His Pentasa has been held. He came in with elevated white blood cell count, was started on ciprofloxacin and metronidazole. Today, the patient states he is feeling better. Denies any nausea at this point. Feels that he is no longer bloated. He does have appetite. He is passing flatus. He has not had a bowel movement. The patient denies any fevers or chills. PAST MEDICAL HISTORY: 1. Recurrent small bowel obstruction, small bowel Crohn's disease. 2. Diabetes. PAST SURGICAL HISTORY: Ex-lap with lysis of adhesions in 2013 and 2015. He also had a laparoscopic cholecystectomy in between these two episodes. MEDICATIONS: List is reviewed. FAMILY HISTORY: Maternal grandmother who had ulcerative colitis. The patient is a nonsmoker, lives with his and children. 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 REVIEW OF SYSTEMS: No fevers, no chills. No shortness of breath or chest pain. Abdominal pain as described. No dysuria. No change in bowel habits. The patient does have obesity and diabetes. He is noninsulin dependent. No headaches. No psychiatric or neurologic diseases. PHYSICAL EXAM: He is afebrile. Vital signs are stable. Blood pressure 117/ 72. He is alert and oriented x3. He is in no apparent distress. Head, Ears, Eyes, Nose and Throat: Normocephalic, atraumatic. Sclerae anicteric. Mucous membranes are moist. Lungs are clear to auscultation bilaterally. Abdomen is soft, nondistended, nontender. Midline incision is identified with a large hernia at the upper aspect of the incision. It is reducible. Large neck. No overlying skin changes. Rectal exam not performed. Extremities within normal limits. DIAGNOSTIC STUDIES/LAB DATA: Labs reviewed, showed elevated white blood cell count 19 upon arrival, but this is coupled with dehydration. The patient's white count now is 9.9 with an H and H of 16/45. Chemistry panel reviewed. The patient did have an elevated lactate of 2.5 on arrival, is now normalized. Creatinine of 1, which is about patient's baseline. CT scan reviewed, showed dilated small bowel and large bowel. No free fluid, no free air. No transition point. IMPRESSION: Ms. Hensley is a 37-year-old gentleman whom I have operated in the past for a nonresolving small bowel obstruction, performing significant lysis of adhesions and placing a gastrostomy tube at the same time because of the concern of postoperative care who now is treated with Crohn's disease, apparently successfully with Pentasa. He does also have a ventral hernia. It is unclear if it warrants repair at this point. The patient's house painter helper recommended holding off at this point noting that additional surgeries may exacerbate patient's disease. The patient certainly does not require any surgical intervention at this point as he seems to be resolving. He could be started on a liquid diet and advanced. He could be restarted back on his Pentasa. He asked to me recheck with his house painter helper and I will do this. We will follow along. The patient does not require antibiotics. I would recommend stopping them and I will probably will order these. [id number]/[facility] #: [id number] [facility]
[2018-02-07] MEDS: methylPREDNISolone SOD 40 MG* 1 ML VIAL IV SCH ×2 (10:53→23:18)
[2018-02-07] MEDS: MESALAMINE 500 MG PO SCH ×2 (12:22→17:33)
[2018-02-07] MEDS: NS 0.9% 1000 ML* 2,000 ML IV ONE ×2 (18:52→20:00)
--- NOTE | 2018-02-07 20:01 | CONS ---
CONSULTATION REPORT: DATE OF CONSULT: 02/07/18 REQUESTING PHYSICIAN: Dr. Marilu Thompson. REASON FOR CONSULT: Small bowel obstruction, questionable history of Crohn's disease. HISTORY OF PRESENT ILLNESS: This is a pleasant 37-year-old male with a history of previous small bowel obstructions, who presented to the emergency room on 02/06/18 with abdominal bloating and distention. He noted over the last few days decreased abdominal flatus and had two episodes of abdominal discomfort. He initially thought it was improving in the past. He had gone through a clear liquid diet and this improved his symptoms, but then he developed nausea and vomiting and then presented to the emergency room. He states that the emesis was green in color, bilious without any black or blood. There was no hematemesis. He denies any fever, chills, or rigors. He denies any sick contacts in the household. No chest pain, no shortness of breath. He states that his weight has been stable, no loss or no gain. Denies any easy bruising. No skin rashes or lesions. There are no joint pains or arthropathies that are out of the ordinary. He denies any eye or vision difficulties. He had a colonoscopy and upper endoscopy in November of 2016 at [facility] with Dr. Lisette Rosales. The biopsies were negative for any inflammatory bowel disease on the upper endoscopy or lower endoscopy including the terminal ileum. He had a small bowel followthrough on 04/02/17 that showed delayed small bowel transit and dilatations and recommendation was made for MR enterography. He had an MRI of the abdomen on 05/07/17 that showed no acute pathology or mass, no evidence of Crohn's or other inflammatory bowel disease. He did have Prometheus testing done that was possible IBD pattern Crohn's based on the laboratory data; however, his ASCA and pANCA were both negative and the OmpC was negative as well. He had been treated with Pentasa under the thought that perhaps this was inflammatory bowel disease causing the previous two obstructions; however, he did have two abdominal surgeries in the past, 1 for a congenital adhesion and a second exploratory lap with adhesion lysis that was done at this facility and he also has a known ventral hernia. Of note, his CRP was normal on this admission. He did have a leukocytosis that rapidly returned to normal 24 hours later. He has been afebrile on admission. The remainder of the 14-point review of systems was grossly negative. PAST MEDICAL HISTORY: 1. Recurrent small bowel obstruction, possible inflammatory bowel disease, but no biopsy diagnosis at this time according to the records available to me. 2. History of ventral hernia. 3. Diabetes mellitus. PAST SURGICAL HISTORY: Lysis of adhesions in April 2013 and 2015 and laparoscopic cholecystectomy in 2013. MEDICATIONS: Home medications include: 1. Pentasa. 2. Metformin. 3. Bentyl. ALLERGIES: Include ASPARTAME. FAMILY HISTORY: Maternal grandmother with ulcerative colitis, but no brothers, sisters, or primary family members. SOCIAL HISTORY: He lives at home with his and 4 children. 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 Quit smoking in 2005. He smoked pack a day for about 6 years. Rare alcohol use. REVIEW OF SYSTEMS: The remainder of the 14-point review of systems was grossly negative except for as described in the HPI. PHYSICAL EXAM: Vital Signs: Blood pressure is 117/72, pulse 84, respiratory rate 16, temperature is 98.2. General: Alert and oriented x3, in no acute distress. HEENT: Atraumatic, normocephalic. Pupils are equal, round, and reactive to light. Extraocular movements intact. The sclerae are anicteric. Conjunctivae are pink. Cardiovascular: Regular rate and rhythm. S1, S2. Pulmonary: Clear to auscultation bilaterally. Abdomen: Soft, nontender, nondistended. He does have a prominent ventral hernia that is reducible. Bowel sounds are positive at this point, although slightly hypoactive. Extremities: No clubbing, no cyanosis, and no edema. Skin Exam: No skin rashes or lesions evident. Neuro exam is nonfocal. Moves all 4s. Psych: Appropriate mood and affect. DIAGNOSTIC STUDIES/LAB DATA: Hemoglobin on admission was 17.0, today is 15.9. INR is 0.90. Lactic acid on admission was 2.2, today is 1.7. Glucose point of care was 127. A CT of the abdomen and pelvis on 02/06/18 demonstrated small bowel obstruction similar in characteristic, but less prominent compared to study on 11/07/16. There was no definitive point of transition identified and again an epigastric ventral wall hernia was noted. ASSESSMENT AND PLAN: This is a 37-year-old male with recurrent small bowel obstruction, potential history of inflammatory bowel disease without a biopsy diagnosis. 1. Small bowel obstruction. Appears to be resolving at this point. He is currently doing clear liquids and fine. If he has recurrence, we would recommend NG tube. Continue to follow with the surgical service. I think that the likely cause of his small bowel obstruction is more adhesions; however, inflammatory bowel disease is possible, but I favor less likely given we do not have a biopsy-confirmed disease and an MR enterography in April did not show any active areas of inflammation. He has had multiple abdominal surgeries. I think adhesions are far more likely in this situation, but he will continue to follow with his primary manager strategic. The Pentasa he feels have been somewhat effective over the last few months in relieving his symptoms. A trial of IV steroids has been initiated by the primary team. This is reasonable, though I would keep the duration extremely short. I doubt that this is an inflammatory stricture. If evidence for recurrence and ongoing, we would consider either direct visualization with small bowel balloon assist enteroscopy versus potential surgical opinion after conferencing with his primary manager strategic in [place]. In the meantime, continue with supportive care. 2. Possible history of Crohn's disease. No biopsy diagnosis according to records available to me. [id number]/[facility] #: [id number] QI
[2018-02-08] MEDS: MESALAMINE 500 MG PO SCH ×3 (00:01→12:06)
[2018-02-08] MEDS: NS 0.9% 1000 ML* 1,000 ML IV SCH (02:05)
[2018-02-08] MEDS: Insulin REGULAR(*) 1 UNITS UNIT SUBCUT SCH ×2 (05:59→12:28)
--- NOTE | 2018-02-08 10:31 | PN ---
Progress Note - Progress Note Date of Service: 02/08/18 SOAP: Subjective: Pt seen and examined. pos flatus, no nausea, some abdo pain Pt started on steroids yesterday. [facility]. Objective: Temp Pulse Resp BP Pulse Ox 97.6 F 83 16 122/66 97 02/08/18 07:35 02/08/18 07:35 02/08/18 07:35 02/08/18 07:35 02/08/18 07:35 lungs clear b/l abdo: soft/ mild distension/ minimal tenderness hypoactive BS, large reducible incisional hernia Assessment: Likely crohn's flareup Plan: no surgical intervention at this time SACMA to cover me this weekend-- please call if pt need surgical re-evaluation
[2018-02-08] MEDS: methylPREDNISolone SOD 40 MG* 1 ML VIAL IV SCH (10:53)
[2018-02-08 11:56] VITALS: BP 129/82
--- NOTE | 2018-02-08 12:40 | PN ---
Subjective Date of Service: 02/07/18 Interval History: Mr. Hensley was seen and examined by me twice on 02/07. In the morning, he ewas feeling pretty well, definitely thought he was already getting better. He had just advanced to liquids by Dr. Man. He had had some water, coffee, and was getting ready to have gatorade. Some cramping. + flatus, no BM. i came back to examine his around 6pm to follow up. He had tolerated some pudding and soup. Still no BM, no nuase, and no vomiting all day. He noted that his urine had become dark, which he knows is his "body flushing out the inflammation in the bowels" and he asks that I order several boluses of fluid to "flush it out. " Objective Active Medications: Sodium Chloride (Ns 0.9% 1000 Ml*) 1,000 mls @ 150 mls/hr IV PER RATE [facility] Last Admin: 02/08/18 02:05 Dose: 150 mls/hr Insulin Human Regular (Insulin Regular(*)) 0 units SUBCUT Q6HR [facility]; Protocol Last Admin: 02/08/18 12:28 Dose: Not Given Mesalamine (Pentasa(Nf)) 1,000 mg PO Q6HR [facility] Last Admin: 02/08/18 12:06 Dose: 1,000 mg Morphine Sulfate (Morphine Vial*) 2 mg IV Q4H PRN PRN Reason: PAIN - MILD Ondansetron HCl (Zofran Inj*) 4 mg IV Q4H PRN PRN Reason: NAUSEA/VOMITING Prednisone (Deltasone Tab*) 60 mg PO DAILY [facility] Vital Signs - 8 hr 02/08/18 02/08/18 02/08/18 07:35 08:00 11:49 Temperature 97.6 F 97.9 F Pulse Rate 83 82 Respiratory 16 16 14 Rate Blood Pressure 122/66 129/82 (mmHg) O2 Sat by Pulse 97 99 Oximetry Oxygen Devices in Use Now: None Appearance: alert, nontoxic, well appearing Eyes: No Scleral Icterus Ears/Nose/Mouth/Throat: NL Teeth, Lips, Gums Neck: NL Appearance and Movements; NL JVP Respiratory: Symmetrical Chest Expansion and Respiratory Effort, Clear to Auscultation Cardiovascular: NL Sounds; No Murmurs; No JVD, RRR Abdominal: - - laparotomy scar, soft, mildly tender to deep palpation throughout , no point tenderness and no guarding Lymphatic: No Cervical Adenopathy Extremities: No Edema Skin: No Rash or Ulcers Neurological: Alert and Oriented x 3 Result Diagrams: 02/07/18 05:40 02/07/18 05:40 Assess/Plan/Problems-Billing Assessment: This is a 37 year old man with history of ? small bowel crohns (diagnosed at [facility] by a blood test, never biopsy proven) and several recurrent SBOs admitted with nausea and pain and found to have another SBO - Patient Problems (1) SBO (small bowel obstruction) Current Visit: No Status: Acute Code(s): K56.69 - OTHER INTESTINAL OBSTRUCTION * DO NOT USE * SNOMED Code(s): 437969710 Comment: He declined an NG tube at admission, but has been doing okay without it--no vomiting Diet advancing successfully Evaluated by Magda plan for conservative management Appreciate Dr. Pittman's consult--suggests that crohn's is unlikely; recurrent obstructions are more likely related to adhesions continue IVF advance diet (2) Diabetes Current Visit: No Status: Acute Code(s): E11.9 - TYPE 2 DIABETES MELLITUS WITHOUT COMPLICATIONS SNOMED Code(s): 99504574 Comment: metformin on hold
[2018-02-09] MEDS ORDERED: predniSONE TAB* 20 MG PO SCH (09:00)
--- NOTE | 2018-02-09 17:26 | DS ---
CC: Kiah Mojica MD * DISCHARGE SUMMARY: DATE OF ADMISSION: 02/06/18 DATE OF DISCHARGE: 02/08/18 PRIMARY CARE PROVIDER: Kiah Mojica MD MY ATTENDING WHILE IN THE HOSPITAL: Emmy Solis MD * (DICTATED BY ROBERT MARTINEZ) PRIMARY DISCHARGE DIAGNOSES: Small bowel obstruction, possible Crohn's flare. SECONDARY DISCHARGE DIAGNOSES: 1. Ventral hernia. 2. Diabetes. 3. Recurrent small bowel obstruction. STUDIES DONE WHILE IN THE HOSPITAL: Abdomen and pelvis CT from 02/06/18 read as evidence of small bowel obstruction with less prominence since 11/07/16 but has similar configuration, appears to be somewhat tapering. Status post cholecystectomy, broad-based epigastric ventral wall hernia containing some bowel segments, no strangulation or point of obstruction. MEDICATION AT DISCHARGE: 1. Metformin 750 mg p.o. b.i.d. 2. Hyoscyamine 0.125 mg p.o. q. 6. hours. 3. Mesalamine 1000 mg p.o. q. 6 hours. 4. Prednisone 60 mg p.o. daily with quick taper. HOSPITAL COURSE: This is a brief summary of patient's presentation. For more details, please see the history and physical from Noris Crouch on 02/06/18. The patient is a 37-year-old male with past medical history significant for the above who presented to the emergency department with worsening abdominal pain, nausea and vomiting. The patient has frequent episodes with symptoms consistent with this but she attributes to small bowel obstruction. He was started on Pentasa for presumed Crohn's disease and this helped significantly. The patient usually when developing the symptoms switches to clears; however, he did not this time due to feeling somewhat better and his symptoms came back including significantly worsening nausea, pain. The patient came to emergency department and had a CAT scan read as above. The patient was still moving flatus throughout this time. The patient was admitted to the hospital. The patient had no recent changes in medication. No recent changes in diet or lifestyle. The patient previously had lysis of adhesions and laparoscopic cholecystectomy. The patient was admitted to the hospital, kept n.p.o. The patient was seen in consultation by Dr. Kraig Man and Dr. Tyler Pittman of Surgery and Gastroenterology respectively who recommended watchful waiting and no surgical intervention as well as raising the possibility of this being thing related entirely to adhesions and patient's diagnosis of Crohn's not being fully established by biopsy. The patient's appetite quickly returned. He had 2 small bowel movements in the morning of 02/08/18, passing flatus, his abdominal pain significantly decreased. He described as a sore from distension and vomiting. The patient was started on IV steroids, which seemed to help pace in the improvement of his symptoms. The patient was stable now for discharge on 02/08/18 with close followup with his outpatient medical librarian on 02/11/18. PHYSICAL EXAMINATION: On date of discharge, general, the patient is a 37-year- old man who appears stated age and is sitting comfortably in bed, in no acute distress. Vital signs at the time of discharge: Temperature 97.9, pulse rate 82 , respiratory rate 14, oxygen saturation 99% on room air, blood pressure 129/ 82. HEENT: Head: Normocephalic, atraumatic, sclerae intact. No conjunctival injection. Nasal mucosa moist. Oral mucosa moist. No pharyngeal erythema, discharge, or exudates. Neck: Supple, nontender. No lymphadenopathy. No carotid bruit auscultated. No JVD. Cardiac: Regular rate and rhythm. No clicks, murmurs, gallops, rubs. Pulses 2+ bilaterally in dorsalis pedis, posterior tibialis, and radial areas. Respiratory: Clear to auscultation bilaterally. No wheezes, rales, or rhonchi. Good air exchange bilaterally. Abdomen: Soft, slightly tender to palpation. No focality, no rigidity, no rebound. Ventral hernia with easily reducible loops of bowel, bowel sounds hyperactive present in all 4 quadrants. No hepatosplenomegaly, no abdominal bruits auscultated. No hepatojugular reflux. Genitourinary: No suprapubic tenderness or CVA tenderness. Skin: Clean, dry and intact. No rash. Neuro: Cranial nerves II through XII intact. No focal deficits. Alert and oriented x3. Psychiatric: Pleasant and cooperative. DISCHARGE PLAN: The patient will be discharged to home. The patient will be continued per his normal treatment routine for these episodes on a liquid diet until he is able to tolerate more solid foods. The patient will be continued on a quick taper of prednisone, starting with 60 mg and tapered by 20 mg every 2 days as described to patient. The patient will follow up with his outpatient medical librarian on Sunday, his primary care provider within 1 week for general medical management and to optimize the care of his Crohn's disease. The patient will be continued on Pentasa. The patient will follow up with Dr. Man as needed when deemed appropriate by his outpatient medical librarian to discuss closure of his ventral hernia in a nonemergent fashion. The patient should have a consistent carbohydrate diet when he has returned to his normal diet. The patient should engage in activities as tolerated. TIME SPENT: Approximately 45 minutes was spent on the discharge of this patient , 30 of which was spent [id number] with the patient and obtaining history and physical and discussing treatment plan. ROBERT MARTINEZ [id number]/[facility] #: [id number] MTDD
== END 2018-02-08 13:45 | disposition home or self-care (01) | DRG 387 ==
LOC: ED 19:35 → SSU 23:33
PROVIDERS: ADMIT Pediatrics; ATTEND Internal Medicine
DX: K50.012 Crohn's disease of small intestine with intestinal obstruction (principal); E11.9 Type 2 diabetes mellitus without complications; K43.9 Ventral hernia without obstruction or gangrene; R14.0 Abdominal distension (gaseous); Z90.49 Acquired absence of other specified parts of digestive tract; Z79.52 Long term (current) use of systemic steroids; Z79.84 Long term (current) use of oral hypoglycemic drugs; Z91.018 Allergy to other foods; Z83.3 Family history of diabetes mellitus; Z82.49 Family history of ischemic heart disease and other diseases of the circulatory system; Z83.79 Family history of other diseases of the digestive system; Z87.891 Personal history of nicotine dependence; Z80.0 Family history of malignant neoplasm of digestive organs; Z23 Encounter for immunization
CPT/HCPCS: 36415; 74177; 80048; 80053; 82150; 83605; 83690; 83735; 85025; 85610; 85730; 86140; 90686; 99284; J0744; J2270; J2765; J2920; J3490; Q9967

== ENCOUNTER 2019-04-17 17:33 | Emergency (ER) | payer OTHER ==
[2019-04-17 18:04] LABS: Influenza A Molecular NEGATIVE (Negative); Influenza B Molecular NEGATIVE (Negative)
--- NOTE | 2019-04-17 18:05 | ED ---
Influenza-Like Illness - HPI Summary HPI Summary: The patient tis a 39 y/o male presenting to [facility] with a chief complaint of flu- like symptoms for the last two days. He reports that three days he began feeling unwell, but the next day he began to develop a fever, chills, myalgia, productive cough, rhinorrhea with yellow phlegm, fatigue, and right ear ache. Today, he also became nausea and had an episode of vomiting which was primarily bile. He also notes that he has been wheezing at night. He denies sore throat although it feels dry. Symptoms are currently rated /10 in severity. His PCP advised him to come here. He is diagnosed with Crohns disease and self-injects Humira biweekly with last treatment the day prior to symptoms beginning.He notes that he has small children and could be exposed to anything that they bring home from school. PMHx: DM, GERD, cholecystectomy. Former smoker, rare EtOH, no substance use. Medications reviewed. Allergies noted. - History of Current Complaint Chief Complaint: EDFluSymptoms Time Seen by Provider: 04/17/19 17:53 Hx Obtained From: Patient Onset/Duration: Gradual Onset, Lasting Days, Still Present Severity: Moderate Associated Signs & Symptoms: Fever, Myalgia, Cough, Vomiting - Allergy/Home Medications Allergies/Adverse Reactions: Allergies Allergy/AdvReac Type Severity Reaction Status Date / Time aspartame Allergy Unknown Unknown Verified 02/06/18 22:27 Reaction Details PMH/Surg Hx/FS Hx/Imm Hx Endocrine/Hematology History: Reports: Hx Diabetes Denies: Hx Anticoagulant Therapy, Hx Blood Disorders, Hx Blood Transfusions, Hx Bone Marrow Disease, Hx Sickle Cell Disease, Hx Thyroid Disease, Hx Anemia, Hx Unexplained Bleeding Cardiovascular History: Denies: Hx Congestive Heart Failure, Hx Hypertension Respiratory History: Denies: Hx Asthma, Hx Chronic Obstructive Pulmonary Disease (COPD) GI History: Reports: Hx Crohn's Disease, Hx Gall Bladder Disease - gallblaadder removed, Other GI Disorders - sboX 2 Denies: Hx Gastroesophageal Reflux Disease, Hx Ulcer History: Denies: Hx Acute Renal Failure, Hx Benign Prostatic Hyperplasia, Hx Chronic Renal Failure, Hx Dialysis, Hx Renal Disease Musculoskeletal History: Denies: Hx Arthritis, Hx Back Problems, Hx Bursitis, Hx Congenital Bone Abnormalities, Hx Fibromyalgia, Hx Gout, Hx Orthopedic Injury Sensory History: Reports: Hx Contacts or Glasses - reading glassess, Hx Hearing Problem - 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 Denies: Hx Eye Injury, Hx Eye Prosthesis, Hx Glaucoma, Hx Legally Blind, Hx Macular Degeneration, Hx Vision Problem, Hx Deafness, Hx Hearing Aid, Other Sensory Impairments Opthamlomology History: Reports: Hx Contacts or Glasses - reading glassess Denies: Hx Eye Injury, Hx Eye Prosthesis, Hx Glaucoma, Hx Legally Blind, Hx Macular Degeneration, Hx Vision Problem, Other Sensory Impairments Neurological History: Reports: Hx Nerve Disease - NUMBNESS AT R ARM 5 YEARS AGO Denies: Hx Dementia, Hx Developmental Delay, Hx Headaches, Hx Migraine, Hx Seizures, Hx Spinal Cord Injury, Hx Transient Ischemic Attacks (TIA), Other Neuro Impairments/Disorders Psychiatric History: Denies: Hx Anxiety, Hx Attention Deficit Hyperactivity Disorder, Hx Depression, Hx Community Mental Health Tx, Hx Bipolar Disorder - Surgical History Surgical History: Yes Surgery Procedure, Year, and Place: 2013 - bowel adhesion, HAS HERNIA. CHOLECYSTECTOMY - 2013 Hx Anesthesia Reactions: No Infectious Disease History: No Infectious Disease History: Denies: Hx Hepatitis, Hx Human Immunodeficiency Virus (HIV), History Other Infectious Disease, Traveled Outside the [place] in Last 30 Days - Family History Known Family History: Positive: Other - Positive for stomach CA - Social History Alcohol Use: Rare Alcohol Amount: 2/month Hx Substance Use: No Substance Use Type: Reports: None Hx Tobacco Use: Yes Smoking Status (MU): Former Smoker Type: Cigarettes Length of Time of Smoking/Using Tobacco: 10 Review of Systems Positive: Fever, Chills, Fatigue Positive: Ear Ache - right, Nasal Discharge. Negative: Sore Throat Positive: Cough, Other - wheezing Positive: Vomiting - one episode, Nausea Positive: Myalgia All Other Systems Reviewed And Are Negative: Yes Physical Exam - Summary Physical Exam Summary: Appearance: The patient is well-nourished in no acute distress and in no acute pain. Skin: The skin is warm and dry, and skin color reflects adequate perfusion. HEENT: The head is normocephalic and atraumatic. The pupils are equal and reactive. The conjunctivae are clear and without drainage. Nares are patent and without drainage. Mouth reveals moist mucous membranes, and the throat is without erythema and exudate. The external ears are intact. The ear canals are patent and without drainage. The tympanic membranes are intact. Neck: The neck is supple with full range of motion and non-tender. There are no carotid bruits. There is no neck vein distension. Respiratory: Chest is non-tender. Lungs are clear to auscultation and breath sounds are symmetrical and equal. Cardiovascular: Heart is regular rate and rhythm. There is no murmur or rub auscultated. There is no peripheral edema and pulses are symmetrical and equal. Abdomen: The abdomen is soft and non-tender. There are normal bowel sounds heard in all four quadrants and there is no organomegaly palpated. Musculoskeletal: There is no back tenderness noted. Extremities are non-tender with full range of motion. There is good capillary refill. There is no peripheral edema or calf tenderness elicited. Neurological: Patient is alert and oriented to person, place and time. The patient has symmetrical motor strength in all four extremities. Cranial nerves are grossly intact. Deep tendon reflexes are symmetrical and equal in all four extremities. Psychiatric: The patient has an appropriate affect and does not exhibit any anxiety or depression. Triage Information Reviewed: Yes Vital Signs On Initial Exam: Initial Vitals Temp Pulse Resp BP Pulse Ox 100.8 F 105 18 135/88 95 04/17/19 17:38 04/17/19 17:38 04/17/19 17:38 04/17/19 17:38 04/17/19 17:38 Vital Signs Reviewed: Yes Procedures - Sedation Patient Received Moderate/Deep Sedation with Procedure: No Diagnostics - Vital Signs Vital Signs Temp Pulse Resp BP Pulse Ox 04/17/19 17:38 100.8 F 105 18 135/88 95 - Laboratory Lab Results: Lab Results 04/17/19 Range/Units 17:42 Influenza A (Rapid) Pending Influenza B (Rapid) Pending Lab Statement: Any lab studies that have been ordered have been reviewed, and results considered in the medical decision making process. - Radiology CXR Radiology Interpretation Completed By: ED Physician Summary of Radiographic Findings: Retrocardiac infiltrate. ED physician has reviewed and interpreted this report. Pending official read. Re-Evaluation - Re-Evaluation First Eval Re-Evaluation Time: 20:10 Comment: We discussed all results and plan for discharge. Flu Symptom Course/Dx - Course Course Of Treatment: My interpretation of his chest x-ray is that he has a retrocardiac pneumonia. His influenza swab was negative. His vital signs are within normal limits and he states that he is not feeling particularly bad. He is nontoxic in appearance. He is on an immunosuppressant and I recommended we start antibiotics and have him have close follow-up. - Diagnoses Provider Diagnoses: Pneumonia Discharge ED - Sign-Out/Discharge Documenting (check all that apply): Patient Departure - Patient will be discharged home. - Discharge Plan Condition: Stable Disposition: HOME Prescriptions: Amoxicillin/Clavulanate TAB* [Augmentin TAB 875*] 875 mg PO BID #20 tab Patient Education Materials: Viral Pneumonia (DC) Referrals: [facility] [Outside] - 1 Week Additional Instructions: Please take medication as prescribed. Follow up with your primary care provider in 1 week. Return to the emergency department for any new or worsening symptoms. - Billing Disposition and Condition Condition: STABLE Disposition: Home - Attestation Statements Document Initiated by Ashlyn: Yes Documenting Scribe: Kristen Heath Provider For Whom Ashlyn is Documenting (Include Credential): Dr. Tony Dooley MD Scribe Attestation: Kristen Aguilar scribed for Dr. Tony Dooley MD on 04/17/19 at 2053. Scribe Documentation Reviewed: Yes Provider Attestation: The documentation as recorded by the Kristen mistry accurately reflects the service I personally performed and the decisions made by me, Dr. Tony Dooley MD Status of Scribnoemi Document: Viewed
[2019-04-17] MEDS ORDERED: Amoxicillin/Clavulanate TAB* 875 MG PO ONE (20:12)
[2019-04-17] MEDS ORDERED: Acetaminophen TAB* 325 MG ONE (20:35)
[2019-04-17] MEDS ORDERED: Acetaminophen TAB* 325 MG PO ONE (20:38)
[2019-04-17 20:47] VITALS: BP 120/82
== END 2019-04-17 20:40 | disposition home or self-care (01) ==
LOC: ED 17:33
DX: J18.9 Pneumonia, unspecified organism (principal); E11.9 Type 2 diabetes mellitus without complications; K50.90 Crohn's disease, unspecified, without complications; Z90.49 Acquired absence of other specified parts of digestive tract; Z87.891 Personal history of nicotine dependence; Z79.899 Other long term (current) drug therapy
CPT/HCPCS: 71046; 99282; A9270-GY